=== PATIENT | female | born 1935 | race African-American/Black ===

== ENCOUNTER 2022-08-04 13:07 | Emergency (ER) | payer OTHER, MEDICAID ==
[~2022-08-04] VITALS: Ht 134.6 cm; Wt 40.0 kg
[2022-08-04] MEDS ORDERED: DIPHENHYDRAMINE 50MG/ML VIAL IM ONE (14:00)
[2022-08-04] MEDS ORDERED: SODIUM CHLORIDE 0.9% 1,000 ML IV ONE (14:00)
[2022-08-04] MEDS ORDERED: HALOPERIDOL LACTATE 5MG/ML VIAL IM ONE (14:00)
[2022-08-04] MEDS ORDERED: LORAZEPAM 2MG/ML CPJ IM ONE (14:00)
[2022-08-04 16:28] LABS: HEMATOCRIT. 33.9 % (36.0-48.0); HEMOGLOBIN. 10.2 g/dL (12.0-16.0); MEAN CORPUSCULAR HEMOGLOBIN 22.9 pg (28.0-32.0); MEAN CORPUSCULAR VOLUME 75.8 fL (81.0-99.0); PLATELET 135 x1000/uL (130-400); RED BLOOD CELL COUNT 4.47 mill/uL (4.2-5.4); RED CELL DISTRIBUTION WIDTH 27.6 % (11.6-14.6)
[2022-08-04 16:45] LABS: PROTHROMBIN TIME 10.7 sec (9.6-11.0)
[2022-08-04 16:55] LABS: CHLORIDE 112 mEq/L (98-107)
[2022-08-04 17:04] LABS: CREATINE KINASE 210 IU/L (26-192)
[2022-08-04 18:25] LABS: PLATELET ESTIMATE NORMAL
[2022-08-04 18:30] LABS: CLARITY URINE TURBID (CLEAR); COLOR URINE YELLOW (YELLOW); KETONES URINE TRACE (NEGATIVE); LEUKOCYTE ESTERASE URINE TRACE (NEGATIVE); NITRITE URINE NEGATIVE (NEGATIVE); OCCULT BLOOD URINE 1+ (NEGATIVE); PROTEIN URINE 2+ (NEGATIVE); SPECIFIC GRAVITY URINE 1.013 (1.005-1.030)
[2022-08-04] MEDS ORDERED: HYDRALAZINE 20MG/ML VIAL IV ONE (20:00)
[2022-08-05 06:00] VITALS: BP 148/66
== END 2022-08-05 06:51 | disposition short-term general hospital (02) ==
LOC: ER 13:07 → CANBEDREQ 19:02 → ER 08-05 06:51
DX: I21.4 Non-ST elevation (NSTEMI) myocardial infarction (principal); L89.151 Pressure ulcer of sacral region, stage 1; E86.0 Dehydration; E87.20 Acidosis, unspecified; R62.7 Adult failure to thrive; I10 Essential (primary) hypertension; G40.909 Epilepsy, unspecified, not intractable, without status epilepticus; F03.90 Unspecified dementia, unspecified severity, without behavioral disturbance, psychotic disturbance, mood disturbance, and anxiety; Z20.822 Contact with and (suspected) exposure to COVID-19; Z68.22 Body mass index [BMI] 22.0-22.9, adult; Z88.2 Allergy status to sulfonamides
CPT/HCPCS: 36415; 70450; 71045; 80053; 81003; 82550; 83605; 83690; 83880; 84145; 84484; 85025; 85610; 87040; 87077; 87086; 87426; 93005; 96361; 96372; 96374; 99285; C9803; J0360; J1200; J1630; J2060; J7030; A4315